=== PATIENT | female | born 2000 | race Caucasian/White ===

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

== ENCOUNTER → 2018-02-16 | Outpatient (CLI) | payer BC | LOC: M WUC 18:43 | DX: M25.532 Pain in left wrist (principal) | CPT/HCPCS: 73110 ==